=== PATIENT | male | born 1960 | race Caucasian/White ===

== ENCOUNTER → 2022-05-18 | Outpatient (CLI) | payer OTHER ==
[~2022-05-18] MED LIST: AMLO-251 PO; ASPI-808 PO; CANA100T PO; CARV25TA PO; HYDR-34 PO; LEVO750T39 PO; LOSA100T57 PO; METF-397 PO; MULT-1061 PO; ROSU20TA32 PO; SPIR25TA5 PO
--- NOTE | 2022-05-18 11:31 | Diagnostic Imaging Report ---
Exam: MRI right foot without contrast. Date: May 18, 2022. Indication: 61-year-old male, ulcer at the dorsal aspect of the fourth toe. Comparison: None. Technique: Multiple noncontrast MRI sequences of the right foot were obtained. Findings: There is a dorsal skin contour abnormality in the region of the second proximal interphalangeal joint likely relating to provided history of ulcer. There is adjacent abnormal signal in the soft tissues. Sensitivity for detection of abscess is reduced given the lack of postcontrast imaging. There is T1 marrow signal loss involving the fourth proximal phalanx and fourth middle phalanx with associated marrow edema. The marrow edema in the fourth proximal phalanx extends very near its articulating surface and is throughout the fourth middle phalanx. There is no fourth metacarpophalangeal joint effusion. There is abnormal signal within the soft tissues dorsally in the region of the first interphalangeal joint. There is edema-like signal in the first proximal phalanx extending from the proximal metaphysis to its distal margin where there is also edema-like signal in the first distal phalanx. There is no overt T1 marrow signal loss of these bones. The Lisfranc ligament proper is intact. The imaged portions of the peroneal tendons, posterior flexor tendons, and anterior extensor tendons are intact. There is mild generalized fatty muscle atrophy. Impression: 1. Findings consistent with osteomyelitis involving the fourth proximal middle phalanges as discussed above. 2. Dorsal soft tissue ulcer at the level of the fourth proximal interphalangeal joint without identified focal fluid collection or abscess on noncontrast imaging assessment. 3. Abnormal signal in the dorsal soft tissues at the level of the first interphalangeal joint with adjacent marrow signal abnormalities of the first digit proximal and distal phalanges concerning for early osteomyelitis. Correlation for physical exam in this region is recommended. 4. Mild generalized fatty muscle atrophy which may reflect polyneuropathy. Dictated by: Dictated on workstation # [id number]
== END ==
LOC: RAD 09:31
PROVIDERS: ATTEND Family Medicine
DX: E11.621 Type 2 diabetes mellitus with foot ulcer (principal); M62.571 Muscle wasting and atrophy, not elsewhere classified, right ankle and foot

== ENCOUNTER 2022-05-19 11:35 | Inpatient (IN) | payer OTHER ==
[~2022-05-19] VITALS: Ht 188 cm; Wt 102.4 kg
[2022-05-19] MEDS ORDERED: LACTULOSE SYRUP 10GM/15ML (ENULOSE) 30ML UDC PO PRN (12:45)
[2022-05-19] MEDS ORDERED: diphenhydrAMINE 25 MG TAB (BENADRYL) PO PRN (12:45)
[2022-05-19] MEDS ORDERED: diphenhydrAMINE 50 MG/ML INJ (BENADRYL) IVP PRN (12:45)
[2022-05-19] MEDS ORDERED: MELATONIN 3 MG TABLET PO PRN (12:45)
[2022-05-19] MEDS ORDERED: polyethylene glycoL POWDER 17 GM (MIRALAX) PACK PO PRN (12:45)
[2022-05-19] MEDS ORDERED: morphine INJ 4 MG/ML 1 ML (VIAL/SYRINGE) IV PRN (12:45)
[2022-05-19] MEDS ORDERED: ACETAMINOPHEN 325 MG TABLET PO PRN (12:45)
[2022-05-19] MEDS ORDERED: MILK OF MAGNESIA 400 MG/5 ML 30 ML UDC PO PRN (12:45)
[2022-05-19] MEDS ORDERED: ONDANSETRON 4 MG/2 ML (SDV) Z0FRAN IV PRN (12:45)
[2022-05-19] MEDS ORDERED: VANCOMYCIN INJECTION 0.1 MG in NS (IVPB) 250 ML IV SCH (12:45)
[2022-05-19] MEDS ORDERED: ONDANSETRON 4 MG (ZOFRAN) ORAL DISSOLVE TAB PO PRN (12:45)
[2022-05-19] MEDS ORDERED: BISACODYL 10 MG SUPP (DULCOLAX) PR PRN (12:45)
[2022-05-19] MEDS ORDERED: CALCIUM CARBONATE 500 MG (TUMS) TAB.CHEW PO PRN (12:45)
[2022-05-19] MEDS ORDERED: ANTACID SUSP 30 ML UDC (MYLANTA) PO PRN (12:45)
[2022-05-19] MEDS ORDERED: ROSU20TA32 PO (14:30)
[2022-05-19] MEDS ORDERED: CARV25TA PO (14:30)
[2022-05-19] MEDS ORDERED: MULT-1061 PO (14:30)
[2022-05-19] MEDS ORDERED: CANA100T PO (14:30)
[2022-05-19] MEDS ORDERED: SPIR25TA5 PO (14:30)
[2022-05-19] MEDS ORDERED: ASPI-808 PO (14:30)
[2022-05-19] MEDS ORDERED: AMLO-251 PO (14:30)
[2022-05-19] MEDS ORDERED: METF-397 PO (14:30)
[2022-05-19] MEDS ORDERED: LOSA100T57 PO (14:30)
[2022-05-19 14:49] VITALS: BP 130/73
--- NOTE | 2022-05-19 15:16 | Consultation-Cardiology ---
HPI-Cardiology Cardiology Consultation: Date of Consultation 05/19/22 Time Seen by a Provider: 14:45 Date of Admission 05-19-22 Attending Physician Lalit Farr MD Admitting Physician Admitting Physician: Brisa Campo DO Attending Physician: Brisa Campo DO Consulting Physician Arsenio Batres MD Primary City Distribution Clerk: Dr. Almendarez at [facility] HPI: Chief Complaint: Non-healing wound to right great toe Mr. Rodriguez is a 61 yr old male admitted to [facility] from wound care at [place], [place] d/t non-healing wound to right great toe and osteomylitis seen on recent MRI. He states the wound started as a blister several weeks ago and was healing. He reports he wears steel toed boots, which were rubbing on the wound causing to become inflamed. He reports he has been following with wound care at [place], [place] and Dr. Farr (his PCP). He denies any symptoms of claudication. He reports he had an arterial doppler last week in [place] which he reports was normal. He denies any c/o CP, SOB, palpitations. No c/o fever or chills. Review of Systems-Cardiology Review of Systems Constitutional: No chills, No fever, No malaise Eyes: No vision change Ears/Nose/Throat: No epistaxis, No recent hearing loss Respiratory: As described under HPI Cardiovascular: As described under HPI Gastrointestinal: No diarrhea, No nausea, No vomiting Genitourinary: No dysuria, No hematuria Skin: As described under HPI Psychiatric/Neurological: No anxiety, No depression, No focal weakness, No syncope Hematologic: No bleeding abnormalities [id number] Hx Past Medical History PMH As described under Assessment. Family Medical History Family Medical History: He reports his father had a stroke at age 46. Allergies and Home Medications Allergies Coded Allergies: Penicillins (Verified Allergy, Unknown, 05/19/22) Patient Home Medication List Amlodipine Besylate (Amlodipine Besylate) 10 Mg Tablet, 10 MG PO DAILY, (Reported) Entered as Reported by: TORRES GOTTI on 05/19/22 143 Last Action: Continued Aspirin (Aspirin) 325 Mg Tablet, 325 MG PO BID, (Reported) Entered as Reported by: TORRES GOTTI on 05/19/22 143 Last Action: Held Canagliflozin (Invokana) 100 Mg Tablet, 100 MG PO DAILY, (Reported) Entered as Reported by: TORRES GOTTI on 05/19/221429 Last Action: Converted Carvedilol (Carvedilol) 25 Mg Tablet, 25 MG PO BID, (Reported) Entered as Reported by: TORRES GOTTI on 05/19/221429 Last Action: Converted Losartan Potassium (Losartan Potassium) 100 Mg Tablet, 100 MG PO DAILY, (Reported) Entered as Reported by: TORRES GOTTI on 05/19/221429 Last Action: Continued Metformin HCl (Metformin HCl) 500 Mg Tablet, 500 MG PO BID, (Reported) Entered as Reported by: TORRES GOTTI on 05/19/221429 Last Action: Held Multivit-Min/FA/Lycopen/Lutein (Centrum Silver Men Tablet) 300 Mcg-600 Mcg-300 Mcg Tablet, 1 EACH PO DAILY, (Reported) Entered as Reported by: TORRES GOTTI on 05/19/221429 Last Action: Converted Rosuvastatin Calcium (Rosuvastatin Calcium) 20 Mg Tablet, 20 MG PO HS, (Reported) Entered as Reported by: TORRES GOTTI on 05/19/221429 Last Action: Continued Spironolactone (Spironolactone) 25 Mg Tablet, 25 MG PO DAILY, (Reported) Entered as Reported by: TORRES GOTTI on 05/19/221429 Last Action: Continued Physical Exam-Cardiology Physical Exam Vital Signs/I&O 05/19/22 05/20/22 05/20/22 05/20/22 23:51 03:45 07:59 08:21 Temp 36.3 36.4 35.4 Pulse 74 68 73 Resp 17 13 18 B/P (MAP) 120/63 (82) 136/74 (94) 151/80 (103) Pulse Ox 95 95 97 O2 Delivery Room Air Room Air Room Air Room Air 05/20/22 10:59 O2 Delivery Room Air O2 Flow Rate 0.00 05/20/22 00:00 Intake Total 1620 ml Balance 1620 ml Capillary Refill : Constitutional: AAO x 3, well-developed, well-nourished HEENT: PERRL, hearing is well preserved, oral hygience is good Neck: No carotid bruit; carotid pulses are 2 + bilaterally Respiratory: No accessory muscle use, No respiratory distress; chest expansion is symmetric, chest is bilaterally symmetric, lungs clear to auscultation Cardiovascular: regular rate-rhythm; No JVD; S1 and S2 Gastrointestinal: No tender; soft, round, audible bowel sounds Extremities: no lower extremity edema bilateral Neurologic/Psychiatric: grossly intact (moves all extremities) Skin: other (dressing to right great toe which is D&I - not removed) Data Review Labs Laboratory Tests 05/19/22 16:00: Sodium Level 136, Potassium Level 4.6, Chloride Level 104, Carbon Dioxide Level 22, Anion Gap 10, Blood Urea Nitrogen 28H, Creatinine 1.55H, Estimat Glomerular Filtration Rate 50, BUN/Creatinine Ratio 18, Glucose Level 138H, Calcium Level 9.4, Corrected Calcium 9.3, Total Bilirubin 0.5, Aspartate Amino Transf (AST/SGOT) 28, Alanine Aminotransferase (ALT/SGPT) 28, Alkaline Phosphatase 98, Total Protein 7.8, Albumin 4.1 05/19/22 16:06: Glucometer 124H 05/19/22 16:45: White Blood Count 9.7, Red Blood Count 4.43, Hemoglobin 13.9, Hematocrit 42, Mean Corpuscular Volume 95, Mean Corpuscular Hemoglobin 31, Mean Corpuscular Hemoglobin Concent 33, Red Cell Distribution Width 12.7, Platelet Count 244, Mean Platelet Volume 9.6, Immature Granulocyte % (Auto) 0, Neutrophils (%) (Auto) 65, Lymphocytes (%) (Auto) 23, Monocytes (%) (Auto) 6, Eosinophils (%) (Auto) 5, Basophils (%) (Auto) 1, Neutrophils # (Auto) 6.3, Lymphocytes # (Auto) 2.3, Monocytes # (Auto) 0.6, Eosinophils # (Auto) 0.5H, Basophils # (Auto) 0.1, Immature Granulocyte # (Auto) 0.0 05/19/22 20:12: Glucometer 94 05/20/22 05:29: White Blood Count 8.9, Red Blood Count 4.09L, Hemoglobin 13.1L, Hematocrit 39L, Mean Corpuscular Volume 96, Mean Corpuscular Hemoglobin 32, Mean Corpuscular Hemoglobin Concent 34, Red Cell Distribution Width 12.7, Platelet Count 206, Mean Platelet Volume 9.6, Immature Granulocyte % (Auto) 0, Neutrophils (%) (Auto) 71, Lymphocytes (%) (Auto) 16, Monocytes (%) (Auto) 7, Eosinophils (%) (Auto) 5, Basophils (%) (Auto) 1, Neutrophils # (Auto) 6.3, Lymphocytes # (Auto) 1.4, Monocytes # (Auto) 0.6, Eosinophils # (Auto) 0.4H, Basophils # (Auto) 0.1, Immature Granulocyte # (Auto) 0.0, Sodium Level 137, Potassium Level 4.2, Chloride Level 107, Carbon Dioxide Level 22, Anion Gap 8, Blood Urea Nitrogen 21H, Creatinine 1.11, Estimat Glomerular Filtration Rate 75, BUN/Creatinine Ratio 19, Glucose Level 119H, Calcium Level 9.2, Corrected Calcium 9.4, Total Bilirubin 0.6, Aspartate Amino Transf (AST/SGOT) 25, Alanine Aminotransferase (ALT/SGPT) 26, Alkaline Phosphatase 82, Total Protein 6.8, Albumin 3.7 05/20/22 05:43: Glucometer 112H A/P-Cardiology Assessment/Admission Diagnosis Non-healing wound with osteomylitis right great toe - reports arterial u/s last week at wound care in [place], [place] which is reported as normal - management of wound per Dr. Berger and Dr. Campo - MRI 05-18-22: Findings consistent with osteomyelitis involving the fourth proximal middle phalanges as discussed above. Dorsal soft tissue ulcer at the level of the fourth proximal interphalangeal joint without identified focal fluid collection or abscess on noncontrast imaging assessment. Abnormal signal in the dorsal soft tissues at the level of the first interphalangeal joint with adjacent marrow signal abnormalities of the first digit proximal and distal phalanges concerning for early osteomyelitis. Correlation for physical exam in this region is recommended. Mild generalized fatty muscle atrophy which may reflect polyneuropathy. 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 Almendarez of [facility] - maintained on ARB, Coreg, Aldactone DM - diabetic neuropathy of LE HLD HTN Discussion and Recomendations Non-healing wound of right great toe with osteomylitis - management per Dr. Berger/Dr. Campo - peripheral CTA today H/O viral CM per pt report - continue home medications of ARB, BB, diuretic and ASA Monitor lab - replace electrolytes as indicated Further recs will be based on his hospital course We would like to thank Dr. Campo for this consult Clinical Quality Measures DVT/VTE Risk/Contraindication: Contraindications-Mechi: Other *list below* Other: osteomyelitis PAMELA FUNES PRIVATE DUTY AIDE May 19, 2022 15:16
[2022-05-19 15:30] VITALS: BP 130/73
--- NOTE | 2022-05-19 15:32 | Progress Note-Pre Operative ---
Pre-Operative Progress Note H&P Reviewed The H&P was reviewed, patient examined and no changes noted. Date Seen by Provider: May 19, 2022 Time Seen by Provider: 16:00 Date H&P Reviewed: May 19, 2022 Time H&P Reviewed: 16:00 Pre-Operative Diagnosis: left 4th toe osteomyelitis CHICHI KIM MD May 19, 2022 15:32
[2022-05-19] MEDS ORDERED: fentaNYL INJ 100 MCG/2 ML AMP IVP PRN (15:45)
[2022-05-19] MEDS ORDERED: RT-ALBUTEROL SULF 2.5 MG/3 ML PRE-MIX VIAL INH PRN (15:45)
[2022-05-19] MEDS: NS IV 1000 ML 1,000 ML IV SCH ×2 (15:58→20:45)
[2022-05-19] MEDS: ENOXAPARIN 40 MG/0.4 ML (LOVENOX) SYR SC SCH (15:59)
[2022-05-19] MEDS: CEFEPIME INJECTION 1,000 MG in NS (IVPB) 50 ML IV SCH ×2 (15:59→20:32)
[2022-05-19] MEDS ORDERED: VANCOMYCIN 2000 MG/NS 500 ML IVPB IV NR ×2 (16:00)
[2022-05-19 16:10] VITALS: BP 133/74
[2022-05-19] MEDS: inSUlin ASPART (NovoLOG) 1 UNIT/0.01 ML (CHARGE PER UNIT) SC SCH ×2 (16:19→21:00)
[2022-05-19 16:23] LABS: ALBUMIN 4.1 GM/DL (3.2-4.5); POTASSIUM 4.6 MMOL/L (3.6-5.0)
[2022-05-19 16:24] LABS: CALCIUM 9.4 MG/DL (8.5-10.1)
[2022-05-19 16:26] LABS: TOTAL PROTEIN 7.8 GM/DL (6.4-8.2)
[2022-05-19 16:27] LABS: BILIRUBIN,TOTAL 0.5 MG/DL (0.1-1.0)
[2022-05-19 16:29] LABS: CREATININE SERUM 1.55 MG/DL (0.60-1.30)
--- NOTE | 2022-05-19 16:35 | History & Physical-Hospitalist ---
ELEANOR LUNA 05/19/22 1635: History of Present Illness HPI/Chief Complaint Patient presents as a direct admit from wound care in [place], [place] where he was being treated for a right fourth toe lesion. An MRI done 05/18 was consistent with osteomyelitis of the fourth toe. The wound appeared 7 weeks ago as a blister after wearing steel toed boots. Three weeks ago the skin around the wound and up his leg became erythematous, warm, and swollen. At this time he was placed on Cipro 500 BID and Zyvov 600 BID by his PCP. He noticed significant improvement in these symptoms and continued seeing wound care once a week. Currently the wound is visually improved and does not have any surrounding redness or swelling. He denies any signs of systemic infection including fever or chills but reports some photophobia since starting his oral antibiotics. Source: patient, family Exam Limitations: no limitations Date Seen 05/19/22 Time Seen by a Provider: 04:30 Attending Physician Lalit Farr MD PCP Admitting Physician: Brisa Marshall DO Attending Physician: Brisa Marshall DO Referring Physician Date of Admission May 19, 2022 at 14:12 Home Medications & Allergies Home Medications Reviewed patient Home Medication Reconciliation performed by pharmacy medication reconciliations distribution field technician and/or nursing. Patients Allergies have been reviewed. Allergies Allergies Coded Allergies Penicillins (Verified Allergy, Unknown, 05/19/22) Past Tbzpqqb-[id number]-Ceqyxa Hx Patient Social History Tobacco Use?: No Smoking Status: Never a Smoker Smokeless Tobacco Frequency: Never a User Use of E-Cig and/or Vaping dev: No Substance use?: No Alcohol Use?: No Pt feels they are or have been: No Immunizations Up To Date Tetanus Booster (TDap): Less Than 5 Years Hepatitis A: Yes Hepatitis B: Yes Current Status Advance Directives: No Communicates: Verbally Primary Language: Burmese Preferred Spoken Language: Burmese Is interpretation needed?: No Past Medical History Surgeries: Amputation (Right middle finger) High Cholesterol, Hypertension Diabetes, Non-Insulin dep Are Your Blood Sugars Over 250: No Family Medical History CVA (Father at age 46) Review of Systems Constitutional: No chills, No diaphoresis, No fever, No weight gain; weight loss (purposeful) EENTM: eye pain (photophobia since starting oral antibiotics); No throat pain Respiratory: cough (recent cough); No dyspnea on exertion, No short of breath Cardiovascular: No chest pain, No palpitations Gastrointestinal: No abdominal pain, No constipation, No diarrhea Genitourinary: No dysuria, No frequency Musculoskeletal: No joint pain; joint swelling (right ankle (chronically swollen)) Skin: No change in color; lesions (lesion to right 4th toe, dressed. Did not remove dressing.); No rash Psychiatric/Neurological: Denies Headache Physical Exam Physical Exam Vital Signs Vital Signs - First Documented 05/19/22 14:49 Temp 36.2 Pulse 74 Resp 18 B/P (MAP) 130/73 (92) Pulse Ox 96 O2 Delivery Room Air Capillary Refill : Height, Weight, BMI Height: '" Weight: lbs. oz. kg; 28.97 BMI Method: General Appearance: No Apparent Distress Eyes: Bilateral Eye EOMI HEENT: Pharynx Normal, Moist Mucous Membranes Neck: Normal Inspection, Supple Respiratory: Lungs Clear, Normal Breath Sounds, No Accessory Muscle Use Cardiovascular: Regular Rate, Rhythm, No JVD, No Murmur Gastrointestinal: Normal Bowel Sounds, Non Tender Rectal: Deferred Back: Normal Inspection, No CVA Tenderness Extremity: Normal Capillary Refill, No Calf Tenderness, Swelling (right ankle swollen (chronic problem)) Neurologic/Psychiatric: Alert, Oriented x3, Normal Mood/Affect Skin: Normal Color, Warm/Dry, Other (wound to right 4th toe dressed.) Results Results/Procedures Labs Laboratory Tests 05/19/22 16:00 Patient resulted labs reviewed. Assessment/Plan Admission Diagnosis Non-healing wound with osteomylitis right fourth toe Assessment and Plan Non-healing wound with osteomylitis right fourth toe * reports arterial u/s last week at wound care in [place], [place] which is reported as normal * MRI 05-18-22: Findings consistent with osteomyelitis involving the fourth proximal middle phalanges * Started on Vancomycin and Cefepime * Surgery consulted, appreciate recs DM * Hx of diabetic neuropathy of LE * Blood sugars in the 100s * Obtain A1C * Sliding scale insulin while inpatient * Home meds Metformin and Canagliflozin held HLD * Continue home meds HTN * Continue home meds 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 Almendarez of [facility] * Continue SALES PROMOTION COORDINATOR meds ARB, Coreg, Aldactone * Cardiology following, appreciate recs DVT prophylaxis: Lovenox Clinical Quality Measures DVT/VTE Risk/Contraindication: Contraindications-Mechi: Other *list below* Other: osteomyelitis BRISA MARSHALL DO 05/20/22 0608: History of Present Illness HPI/Chief Complaint CC: Right toe osteomyelitis HPI: This is a pt of Dr. Farr in [place]. He presented with amputation of his fourth toe due to MRI confirmed osteomyelitis. Dr. Batres consulted for PVD evaluation. Dr. Berger consulted for amputation. He is diabetic. Source: patient, family Exam Limitations: no limitations Past Zugzsnd-Xyzwdw-Yqynld Hx Patient Social History Marrital Status: Employed/Student: employed Tobacco Use?: No Past Medical History Surgeries: Amputation (Right middle finger) High Cholesterol, Hypertension Diabetes, Non-Insulin dep Review of Systems Constitutional: see HPI Physical Exam Physical Exam General Appearance: No Apparent Distress Eyes: Right Eye Normal Inspection, Right Eye PERRL HEENT: PERRL/EOMI, TMs Normal, Normal ENT Inspection, Pharynx Normal, Moist Mucous Membranes Neck: Full Range of Motion, Normal Inspection, Non Tender Respiratory: Chest Non Tender, Lungs Clear, Normal Breath Sounds, No Accessory Muscle Use, No Respiratory Distress Cardiovascular: Regular Rate, Rhythm, No Edema, No Gallop, No JVD, No Murmur, Normal Peripheral Pulses Gastrointestinal: Normal Bowel Sounds, No Organomegaly, No Pulsatile Mass, Non Tender, Soft Back: Normal Inspection, No CVA Tenderness, No Vertebral Tenderness Extremity: Normal Capillary Refill, Normal Inspection, Normal Range of Motion, Non Tender, No Calf Tenderness, No Pedal Edema Neurologic/Psychiatric: Alert, Oriented x3, No Motor/Sensory Deficits, Normal Mood/Affect Skin: Normal Color, Warm/Dry Lymphatic: No Adenopathy Assessment/Plan Admission Diagnosis Assessment: Osteomyelitis in right 4th toe DM HTN HLP Plan: Amputation IV abx Admission Status: Inpatient Order (span 2 midnights) Reason for Inpatient Admission: amputation for osteo Diagnosis/Problems Diagnosis/Problems (1) Osteomyelitis of toe of right foot Supervisory-Addendum Brief Verification & Attestation Participated in pt care: history, MDM, physical Personally performed: exam, history, MDM, supervision of care Care discussed with: Medical Student Procedures: n/a Results interpretation: Verified all documentation Verification and Attestation of Medical Student E/M Service A medical student performed and documented this service in my presence. I reviewed and verified all information documented by the medical student and made modifications to such information, when appropriate. I personally performed the physical exam and medical decision making. Brisa Marshall, May 21, 2022,05:25 ELEANOR LUNA May 19, 2022 16:35 BRISA MARSHALL DO May 20, 2022 06:08
[2022-05-19 16:53] LABS: BASOPHILS # (AUTO) 0.1 10^3/uL (0.0-0.1); BASOPHILS % (AUTO) 1 % (0-10); EOSINOPHILS # (AUTO) 0.5 10^3/uL (0.0-0.3); EOSINOPHILS % (AUTO) 5 % (0-10); HEMATOCRIT 42 % (40-54); HEMOGLOBIN 13.9 g/dL (13.3-17.7); LYMPHOCYTES # (AUTO) 2.3 10^3/uL (1.0-4.0); LYMPHOCYTES % (AUTO) 23 % (12-44); MEAN CORPUSCULAR HEMOGLOBIN 31 pg (25-34); MEAN CORPUSCULAR HGB CONC 33 g/dL (32-36); MEAN CORPUSCULAR VOLUME 95 fL (80-99); MEAN PLATELET VOLUME 9.6 fL (9.0-12.2); MONOCYTES # (AUTO) 0.6 10^3/uL (0.0-1.0); MONOCYTES % (AUTO) 6 % (0-12); NEUTROPHILS # (AUTO) 6.3 10^3/uL (1.8-7.8); NEUTROPHILS % (AUTO) 65 % (42-75); PLATELET COUNT 244 10^3/uL (130-400); WHITE BLOOD COUNT 9.7 10^3/uL (4.3-11.0)
[2022-05-19] MEDS ORDERED: NS 100 ML (IVPB) BAG IV ONE (17:15)
[2022-05-19] MEDS ORDERED: HOLD METFORMIN - RECEIVED CONTRAST 20 ML VIAL IV SCH (17:15)
[2022-05-19] MEDS ORDERED: IOHEXOL 350 MG/ML 100 ML (OMNIPAQUE 350) VIAL IV ONE (17:15)
--- NOTE | 2022-05-19 17:55 | Diagnostic Imaging Report ---
TECHNIQUE: CTA of the right lower extremity was performed. 3D reformats were obtained and reviewed. Dose-reduction techniques were utilized. COMPARISON: 05/18/2022. REASON FOR EXAM: Osteomyelitis. Nonhealing wound. FINDINGS: Scattered atherosclerotic plaque is seen in the right lower extremity arterial system. The right common femoral, profunda femoris, superficial femoral, and popliteal arteries are widely patent without stenosis or aneurysm. No evidence of dissection in these arteries. The anterior tibial and peroneal arteries are widely patent to the ankle. The dorsalis pedis is widely patent and visualized. There is occlusion of the posterior tibial artery proximally secondary to atherosclerotic plaque. No acute fracture is seen in the right lower extremity. There is generalized soft tissue edema in the right foot. No loculated collection to suggest abscess. The abdominal aorta is patent without aneurysm or dissection. The major branch vessels are widely patent. No acute abnormalities are seen in the visualized abdomen. IMPRESSION: 1. Two-vessel runoff to the right lower extremity with occlusion of the proximal right posterior tibial artery. The dorsalis pedis is widely patent. 2. Scattered atherosclerotic plaque in the right lower extremity arterial system. 3. Inflammation and cellulitis in the right foot. No loculated collection to suggest abscess. Dictated by: Dictated on workstation # [id number]
--- NOTE | 2022-05-19 19:21 | Consultation-Cardiology ---
HPI-Cardiology Cardiology Consultation: Date of Consultation 05/19/22 Time Seen by a Provider: 18:40 Date of Admission Attending Physician Lalit Farr MD Admitting Physician Admitting Physician: Brisa Campo DO Attending Physician: Brisa Campo DO Consulting Physician REMI KEMP MD, MA, FACP, FACC, [facility], CCDS HPI: Chief Complaint: Non-healing wound to right great toe Mr. Rodriguez is a 61 yr old male admitted to [facility] from wound care at [place], [place] d/t non-healing wound to right great toe and osteomylitis seen on recent MRI. He states the wound started as a blister several weeks ago and was healing. He reports he wears steel toed boots, which were rubbing on the wound causing to become inflamed. He reports he has been following with wound care at [place], [place] and Dr. Farr (his PCP). He denies any symptoms of claudication. He reports he had an arterial doppler last week in [place] which he reports was normal. He denies any c/o CP, SOB, palpitations. No c/o fever or chills. Review of Systems-Cardiology Review of Systems Constitutional: No chills, No fever, No malaise Eyes: No vision change Ears/Nose/Throat: No epistaxis, No recent hearing loss Respiratory: As described under HPI Cardiovascular: As described under HPI Gastrointestinal: No diarrhea, No nausea, No vomiting Genitourinary: No dysuria, No hematuria Skin: As described under HPI Psychiatric/Neurological: No anxiety, No depression, No focal weakness, No syncope Hematologic: No bleeding abnormalities [id number] Hx Patient Social History Smoking Status: Never a Smoker Have you traveled recently?: No Alcohol Use?: No Pt feels they are or have been: No Past Medical History PMH As described under Assessment. Family Medical History Family Medical History: He reports his father had a stroke at age 46. Allergies and Home Medications Allergies Coded Allergies: Penicillins (Verified Allergy, Unknown, 05/19/22) Patient Home Medication List Home Medication List Reviewed: Yes Amlodipine Besylate (Amlodipine Besylate) 10 Mg Tablet, 10 MG PO DAILY, (Reported) Entered as Reported by: TORRES GOTTI on 05/19/22 1430 Last Action: Reviewed Aspirin (Aspirin) 325 Mg Tablet, 325 MG PO BID, (Reported) Entered as Reported by: TORRES GOTTI on 05/19/221429 Last Action: Reviewed Canagliflozin (Invokana) 100 Mg Tablet, 100 MG PO DAILY, (Reported) Entered as Reported by: TORRES GOTTI on 05/19/221429 Last Action: Reviewed Carvedilol (Carvedilol) 25 Mg Tablet, 25 MG PO BID, (Reported) Entered as Reported by: TORRES GOTTI on 05/19/221429 Last Action: Reviewed Losartan Potassium (Losartan Potassium) 100 Mg Tablet, 100 MG PO DAILY, (Reported) Entered as Reported by: TORRES GOTTI on 05/19/221429 Last Action: Reviewed Metformin HCl (Metformin HCl) 500 Mg Tablet, 500 MG PO BID, (Reported) Entered as Reported by: TORRES GOTTI on 05/19/221429 Last Action: Reviewed Multivit-Min/FA/Lycopen/Lutein (Centrum Silver Men Tablet) 300 Mcg-600 Mcg-300 Mcg Tablet, 1 EACH PO DAILY, (Reported) Entered as Reported by: TORRES GOTTI on 05/19/221429 Last Action: Reviewed Rosuvastatin Calcium (Rosuvastatin Calcium) 20 Mg Tablet, 20 MG PO HS, (Reported) Entered as Reported by: TORRES GOTTI on 05/19/221429 Last Action: Reviewed Spironolactone (Spironolactone) 25 Mg Tablet, 25 MG PO DAILY, (Reported) Entered as Reported by: TORRES GOTTI on 05/19/221429 Last Action: Reviewed Physical Exam-Cardiology Physical Exam Vital Signs/I&O 05/19/22 05/19/22 05/19/22 05/19/22 14:49 15:30 16:09 16:10 Temp 36.2 36.2 36.2 Pulse 74 74 71 Resp 18 18 B/P (MAP) 130/73 (92) 133/74 (93) Pulse Ox 96 96 96 99 O2 Delivery Room Air Room Air Room Air Capillary Refill : Constitutional: AAO x 3, well-developed, well-nourished HEENT: PERRL, hearing is well preserved, oral hygience is good Neck: No carotid bruit; carotid pulses are 2 + bilaterally Respiratory: No accessory muscle use, No respiratory distress; chest expansion is symmetric, chest is bilaterally symmetric, lungs clear to auscultation Cardiovascular: regular rate-rhythm; No JVD; S1 and S2 Gastrointestinal: No tender; soft, round, audible bowel sounds Extremities: no lower extremity edema bilateral Neurologic/Psychiatric: grossly intact (moves all extremities) Skin: other (dressing to right great toe which is D&I - not removed) Data Review Labs Laboratory Tests 05/19/22 16:00: Sodium Level 136, Potassium Level 4.6, Chloride Level 104, Carbon Dioxide Level 22, Anion Gap 10, Blood Urea Nitrogen 28H, Creatinine 1.55H, Estimat Glomerular Filtration Rate 50, BUN/Creatinine Ratio 18, Glucose Level 138H, Calcium Level 9.4, Corrected Calcium 9.3, Total Bilirubin 0.5, Aspartate Amino Transf (AST/SGOT) 28, Alanine Aminotransferase (ALT/SGPT) 28, Alkaline Phosphatase 98, Total Protein 7.8, Albumin 4.1 05/19/22 16:06: Glucometer 124H 05/19/22 16:45: White Blood Count 9.7, Red Blood Count 4.43, Hemoglobin 13.9, Hematocrit 42, Mean Corpuscular Volume 95, Mean Corpuscular Hemoglobin 31, Mean Corpuscular Hemoglobin Concent 33, Red Cell Distribution Width 12.7, Platelet Count 244, Mean Platelet Volume 9.6, Immature Granulocyte % (Auto) 0, Neutrophils (%) (Auto) 65, Lymphocytes (%) (Auto) 23, Monocytes (%) (Auto) 6, Eosinophils (%) (Auto) 5, Basophils (%) (Auto) 1, Neutrophils # (Auto) 6.3, Lymphocytes # (Auto) 2.3, Monocytes # (Auto) 0.6, Eosinophils # (Auto) 0.5H, Basophils # (Auto) 0.1, Immature Granulocyte # (Auto) 0.0 A/P-Cardiology Assessment/Admission Diagnosis Non-healing wound with osteomylitis right great toe - reports arterial u/s last week at wound care in [place], [place] which is reported as normal - management of wound per Dr. Berger and Dr. Campo - MRI 05-18-22: Findings consistent with osteomyelitis involving the fourth proximal middle phalanges as discussed above. Dorsal soft tissue ulcer at the level of the fourth proximal interphalangeal joint without identified focal fluid collection or abscess on noncontrast imaging assessment. Abnormal signal in the dorsal soft tissues at the level of the first interphalangeal joint with adjacent marrow signal abnormalities of the first digit proximal and distal phalanges concerning for early osteomyelitis. Correlation for physical exam in this region is recommended. Mild generalized fatty muscle atrophy which may reflect polyneuropathy. 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 Almendarez of [facility] - maintained on ARB, Coreg, Aldactone DM - diabetic neuropathy of LE HLD HTN Discussion and Recomendations Non-healing wound of right great toe with osteomylitis - management per Dr. Berger/Dr. Campo - peripheral CTA today H/O viral CM per pt report - continue home medications of ARB, BB, diuretic and ASA Monitor lab - replace electrolytes as indicated Echo to eval for cardiomyopathy Further recs will be based on his hospital course We would like to thank Dr. Campo for this consult Clinical Quality Measures DVT/VTE Risk/Contraindication: Contraindications-Mechi: Other *list below* Other: osteomyelitis REMI KEMP MD FACP [facility] CCDS May 19, 2022 19:21
[2022-05-19 20:06] VITALS: BP 146/76
[2022-05-19] MEDS: DOCUSATE SODIUM 100 MG (COLACE) CAP PO SCH (20:29)
[2022-05-19] MEDS: SENNOSIDES 8.6 MG (SENOKOT) TAB PO SCH (20:30)
--- NOTE | 2022-05-19 22:12 | CONSULTATION REPORT ---
DATE OF SERVICE: 05/19/2022 ADMITTING PRIMARY CARE PHYSICIAN: Dr. Lalit Farr in [facility]. ADMITTING PHYSICIAN: Dr. Campo. HISTORY OF PRESENT ILLNESS: The patient is a 61-year-old male who was evaluated for nonhealing wound along the dorsal aspect of the right fourth toe. He states that a blister began approximately seven weeks ago and this then became larger in size, opened up and there was surrounding redness and erythema. 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 He does not report any claudication upon ambulation. He also reports having pulse volume recordings which were found to be normal. Also, on physical examination, he has palpable posterior tibial and dorsalis pedis large arteries. 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 An MRI was performed yesterday, which did show osteomyelitis of the right fourth and first toe. PAST MEDICAL HISTORY: Hypertension, diabetes, hypercholesterolemia, gastroesophageal reflux disease. PAST SURGICAL HISTORY: None. ALLERGIES: PENICILLIN. MEDICATIONS: Amlodipine 10 mg daily, aspirin 325 mg b.i.d., canagliflozin 100 mg daily, carvedilol 25 mg b.i.d., losartan 100 mg daily, metformin 500 mg b.i.d., rosuvastatin 20 mg daily, spironolactone 25 mg daily. SOCIAL HISTORY: Negative smoke, negative alcohol. FAMILY HISTORY: Father, stroke in his 40s, colon cancer. VITAL SIGNS: Temperature 36.2, blood pressure 130/73, pulse 74, respirations 18, pulse ox 96% on room air. REVIEW OF SYSTEMS: Well-nourished male currently in no acute distress. He is not experiencing any shortness of breath or difficulty breathing. No chest pain, palpitations, diaphoresis. No nausea or vomiting, no diarrhea or constipation. No fever or chills, no recent inadvertent weight loss. All other review of systems negative. There also was abnormal MRI uptake at the right first interphalangeal joint concerning for early osteomyelitis. The natural history of small vessel arteriosclerosis due to diabetes was explained to the patient as well as with osteomyelitis and he is in full understanding and would like to proceed with amputation of the right first and fourth digit. PHYSICAL EXAMINATION: CHEST: Good breath sounds bilaterally. CARDIOVASCULAR: Regular, no murmurs. EXTREMITIES: No lower extremity edema, negative Homans sign. HEENT: No scleral icterus. NECK: No cervical lymphadenopathy. ABDOMEN: Soft, nontender, nondistended. SKIN: There are open wounds along the dorsal aspect of the first and fourth right toes. ASSESSMENT AND PLAN: A 61-year-old male with diabetes and small vessel arteriosclerosis or Monckeberg syndrome with osteomyelitis involving the first and fourth right toes. The natural history of this phenomenon as well as the osteomyelitis and the difficulty treating it and risk of recurrent infections is high. He is in full understanding of this and would like to proceed with amputation of the right first and fourth digits, which we will schedule. Job ID: [id number] DocumentID: [id number] Dictated Date: 05/19/2022 15:44:11 Corporate Strategy Intern Date: 05/19/2022 22:11:25 Dictated By: CHICHI KIM MD MTDD
[2022-05-19 23:51] VITALS: BP 120/63
[2022-05-20] VITALS (10 sets, daily range): BP systolic 87–151; BP diastolic 56–80
[2022-05-20] MEDS: CEFEPIME INJECTION 1,000 MG in NS (IVPB) 50 ML IV SCH ×4 (03:34→20:48)
[2022-05-20 05:50] LABS: BASOPHILS # (AUTO) 0.1 10^3/uL (0.0-0.1); BASOPHILS % (AUTO) 1 % (0-10); EOSINOPHILS # (AUTO) 0.4 10^3/uL (0.0-0.3); EOSINOPHILS % (AUTO) 5 % (0-10); HEMATOCRIT 39 % (40-54); HEMOGLOBIN 13.1 g/dL (13.3-17.7); LYMPHOCYTES # (AUTO) 1.4 10^3/uL (1.0-4.0); LYMPHOCYTES % (AUTO) 16 % (12-44); MEAN CORPUSCULAR HEMOGLOBIN 32 pg (25-34); MEAN CORPUSCULAR HGB CONC 34 g/dL (32-36); MEAN CORPUSCULAR VOLUME 96 fL (80-99); MEAN PLATELET VOLUME 9.6 fL (9.0-12.2); MONOCYTES # (AUTO) 0.6 10^3/uL (0.0-1.0); MONOCYTES % (AUTO) 7 % (0-12); NEUTROPHILS # (AUTO) 6.3 10^3/uL (1.8-7.8); NEUTROPHILS % (AUTO) 71 % (42-75); PLATELET COUNT 206 10^3/uL (130-400); WHITE BLOOD COUNT 8.9 10^3/uL (4.3-11.0)
[2022-05-20] MEDS: NS IV 1000 ML 1,000 ML IV SCH ×3 (05:53→15:38)
[2022-05-20] MEDS: inSUlin ASPART (NovoLOG) 1 UNIT/0.01 ML (CHARGE PER UNIT) SC SCH ×4 (05:55→23:26)
[2022-05-20 06:00] LABS: ALBUMIN 3.7 GM/DL (3.2-4.5); POTASSIUM 4.2 MMOL/L (3.6-5.0)
[2022-05-20 06:02] LABS: CALCIUM 9.2 MG/DL (8.5-10.1)
[2022-05-20 06:03] LABS: TOTAL PROTEIN 6.8 GM/DL (6.4-8.2)
[2022-05-20 06:05] LABS: BILIRUBIN,TOTAL 0.6 MG/DL (0.1-1.0)
[2022-05-20 06:06] LABS: CREATININE SERUM 1.11 MG/DL (0.60-1.30)
[2022-05-20] MEDS: MULTIVIT W/MINERALS TAB (THERAGRAN M) PO SCH (07:00)
[2022-05-20] MEDS: EMPAGLIFLOZIN 10 MG TABLET (JARDIANCE) PO SCH (07:43)
[2022-05-20] MEDS: SENNOSIDES 8.6 MG (SENOKOT) TAB PO SCH ×2 (07:43→20:55)
[2022-05-20] MEDS: DOCUSATE SODIUM 100 MG (COLACE) CAP PO SCH ×2 (07:43→20:55)
[2022-05-20] MEDS: SPIRONOLACTONE 25 MG (ALDACTONE) TAB PO SCH (07:44)
[2022-05-20] MEDS: LOSARTAN 100 MG (COZAAR) TABLET PO SCH (09:20)
[2022-05-20] MEDS: amLODIPine 10 MG (NORVASC) TAB PO SCH (09:20)
[2022-05-20] MEDS ORDERED: VANCOMYCIN 2000 MG/NS 500 ML IVPB IV SCH ×2 (12:00)
--- NOTE | 2022-05-20 12:37 | Progress Note - Cardiology ---
Cardiology SOAP Progress Note Subjective: States he is having surgery today No c/o CP, SOB or palpitations Objective: I&O/Vital Signs 05/20/22 05/20/22 05/20/22 05/20/22 03:45 07:59 08:21 10:59 Temp 36.4 35.4 Pulse 68 73 Resp 13 18 B/P (MAP) 136/74 (94) 151/80 (103) Pulse Ox 95 97 O2 Delivery Room Air Room Air Room Air Room Air O2 Flow Rate 0.00 05/20/22 00:00 Intake Total 1620 ml Balance 1620 ml Constitutional: AAO x 3, well-developed, well-nourished Respiratory: No accessory muscle use, No respiratory distress; chest expansion is symmetric, chest is bilaterally symmetric, lungs clear to auscultation Cardiovascular: regular rate-rhythm; No JVD; S1 and S2 Gastrointestional: No tender; soft, round, audible bowel sounds Extremities: no lower extremity edema bilateral Neurologic/Psychiatric: grossly intact (moves all extremities) Skin: other (dressing to right great toe which is D&I - not removed) Results/Procedures: Labs Laboratory Tests 05/19/22 16:00: Sodium Level 136, Potassium Level 4.6, Chloride Level 104, Carbon Dioxide Level 22, Anion Gap 10, Blood Urea Nitrogen 28H, Creatinine 1.55H, Estimat Glomerular Filtration Rate 50, BUN/Creatinine Ratio 18, Glucose Level 138H, Calcium Level 9.4, Corrected Calcium 9.3, Total Bilirubin 0.5, Aspartate Amino Transf (AST/SGOT) 28, Alanine Aminotransferase (ALT/SGPT) 28, Alkaline Phosphatase 98, Total Protein 7.8, Albumin 4.1 05/19/22 16:06: Glucometer 124H 05/19/22 16:45: White Blood Count 9.7, Red Blood Count 4.43, Hemoglobin 13.9, Hematocrit 42, Mean Corpuscular Volume 95, Mean Corpuscular Hemoglobin 31, Mean Corpuscular Hemoglobin Concent 33, Red Cell Distribution Width 12.7, Platelet Count 244, Mean Platelet Volume 9.6, Immature Granulocyte % (Auto) 0, Neutrophils (%) (Auto) 65, Lymphocytes (%) (Auto) 23, Monocytes (%) (Auto) 6, Eosinophils (%) (Auto) 5, Basophils (%) (Auto) 1, Neutrophils # (Auto) 6.3, Lymphocytes # (Auto) 2.3, Monocytes # (Auto) 0.6, Eosinophils # (Auto) 0.5H, Basophils # (Auto) 0.1, Immature Granulocyte # (Auto) 0.0 05/19/22 20:12: Glucometer 94 05/20/22 05:29: White Blood Count 8.9, Red Blood Count 4.09L, Hemoglobin 13.1L, Hematocrit 39L, Mean Corpuscular Volume 96, Mean Corpuscular Hemoglobin 32, Mean Corpuscular Hemoglobin Concent 34, Red Cell Distribution Width 12.7, Platelet Count 206, Valeria n Platelet Volume 9.6, Immature Granulocyte % (Auto) 0, Neutrophils (%) (Auto) 71, Lymphocytes (%) (Auto) 16, Monocytes (%) (Auto) 7, Eosinophils (%) (Auto) 5, Basophils (%) (Auto) 1, Neutrophils # (Auto) 6.3, Lymphocytes # (Auto) 1.4, Monocytes # (Auto) 0.6, Eosinophils # (Auto) 0.4H, Basophils # (Auto) 0.1, Immature Granulocyte # (Auto) 0.0, Sodium Level 137, Potassium Level 4.2, Chloride Level 107, Carbon Dioxide Level 22, Anion Gap 8, Blood Urea Nitrogen 21H, Creatinine 1.11, Estimat Glomerular Filtration Rate 75, BUN/Creatinine Ratio 19, Glucose Level 119H, Calcium Level 9.2, Corrected Calcium 9.4, Total Bilirubin 0.6, Aspartate Amino Transf (AST/SGOT) 25, Alanine Aminotransferase (ALT/SGPT) 26, Alkaline Phosphatase 82, Total Protein 6.8, Albumin 3.7 05/20/22 05:43: Glucometer 112H 05/20/22 11:38: Glucometer 107 Laboratory Tests 05/19/22 16:00 05/19/22 16:45 05/20/22 05:29 A/P: Assessment: Non-healing wound with osteomylitis right great toe - reports arterial u/s last week at wound care in [place], [place] which is reported as normal - management of wound per Dr. Berger and Dr. Campo - MRI 05-18-22: Findings consistent with osteomyelitis involving the fourth proximal middle phalanges as discussed above. Dorsal soft tissue ulcer at the level of the fourth proximal interphalangeal joint without identified focal fluid collection or abscess on noncontrast imaging assessment. Abnormal signal in the dorsal soft tissues at the level of the first interphalangeal joint with adjacent marrow signal abnormalities of the first digit proximal and distal phalanges concerning for early osteomyelitis. Correlation for physical exam in this region is recommended. Mild generalized fatty muscle atrophy which may reflect polyneuropathy. 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 Almendarez of [facility] - maintained on ARB, Coreg, Aldactone DM - diabetic neuropathy of LE HLD HTN Plan: Non-healing wound of right great toe with osteomylitis - management per Dr. Berger/Dr. Campo H/O viral CM per pt report - continue home medications of ARB, BB, diuretic and ASA Monitor lab - replace electrolytes as indicated Echo to eval for cardiomyopathy - pending PAMELA FUNES May 20, 2022 12:37
--- NOTE | 2022-05-20 13:10 | Progress Note-Pre Operative ---
Pre-Operative Progress Note H&P Reviewed The H&P was reviewed, patient examined and no changes noted. Date Seen by Provider: May 20, 2022 Time Seen by Provider: 13:00 Date H&P Reviewed: May 19, 2022 Time H&P Reviewed: 13:00 Pre-Operative Diagnosis: osteomyelitis right 4th toe CHICHI KIM MD May 20, 2022 13:10
[2022-05-20] MEDS ORDERED: proPOfol 200 MG/20 ML (DIPRIVAN) VIAL IV ONE (13:23)
[2022-05-20] MEDS ORDERED: MIDAZOLAM 2 MG/2 ML (VERSED) VIAL ONE (13:23)
[2022-05-20] MEDS ORDERED: fentaNYL INJ 100 MCG/2 ML AMP ONE (13:23)
[2022-05-20] MEDS ORDERED: ONDANSETRON 4 MG/2 ML (SDV) Z0FRAN ONE (13:23)
[2022-05-20] MEDS ORDERED: LIDOCAINE PF 2% 5 ML (XYLOCAINE) VIAL ONE (13:23)
--- NOTE | 2022-05-20 13:24 | Progress Note - Hospitalist ---
ELEANOR LUNA 05/20/22 1324: Subjective HPI/CC On Admission Date Seen by Provider: May 20, 2022 Time Seen by Provider: 10:50 Patient presents as a direct admit from wound care in [place], [place] where he was being treated for a right fourth toe lesion. An MRI done 05/18 was consistent with osteomyelitis of the fourth toe. The wound appeared 7 weeks ago as a blister after wearing steel toed boots. Three weeks ago the skin around the wound and up his leg became erythematous, warm, and swollen. At this time he was placed on Cipro 500 BID and Zyvov 600 BID by his PCP. He noticed significant improvement in these symptoms and continued seeing wound care once a week. Currently the wound is visually improved and does not have any surrounding redness or swelling. He denies any signs of systemic infection including fever or chills but reports some photophobia since starting his oral antibiotics. Subjective/Events-last exam Patient reports no acute events overnight. He denies any fever/chills or pain. He would like clarification on which toe/toes will be amputated in today's surgery. Review of Systems General: No Chills, No Night Sweats, No Fatigue HEENT: No Head Aches, No Visual Changes Pulmonary: No Dyspnea, No Cough Cardiovascular: No: Chest Pain, Palpitations Gastrointestinal: No: Nausea, Vomiting Genitourinary: No Dysuria, No Frequency Musculoskeletal: No: neck pain, shoulder pain Neurological: No: Weakness, Confusion Objective Exam Vital Signs Vital Signs Date Time Temp Pulse Resp B/P (MAP) Pulse Ox O2 Delivery O2 Flow Rate FiO2 05/20/22 12:43 35.8 68 18 127/68 (87) 98 Room Air 05/20/22 10:59 0.00 Capillary Refill : General Appearance: No Apparent Distress HEENT: Moist Mucous Membranes Neck: Full Range of Motion, Non Tender, Supple Respiratory: Chest Non Tender, Lungs Clear, Normal Breath Sounds Cardiovascular: Regular Rate, Rhythm, No Edema, No JVD Gastrointestinal: Normal Bowel Sounds, Non Tender Rectal: Deferred Back: Normal Inspection Extremity: Normal Capillary Refill Neurologic/Psychiatric: Alert, Oriented x3 Skin: Normal Color, Warm/Dry, Other (right toes bandaged. No errythema to surrounding area) Lymphatic: No Adenopathy Results/Procedures Lab Laboratory Tests 05/19/22 16:00 05/19/22 16:45 05/20/22 05:29 Patient resulted labs reviewed. Assessment/Plan Assessment and Plan Assess & Plan/Chief Complaint Non-healing wound with osteomylitis right fourth toe * reports arterial u/s last week at wound care in [place], [place] which is reported as normal * MRI 05-18-22: Findings consistent with osteomyelitis involving the fourth proximal middle phalanges * Started on Vancomycin and Cefepime * NPO * Surgery consulted, will have 4th toe amputated today DM * Hx of diabetic neuropathy of LE * Blood sugars in the 100s * Obtain A1C * Sliding scale insulin while inpatient * Home meds Metformin and Canagliflozin held HLD * Continue home meds HTN * Continue home meds 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 Almendarez of [facility] * Continue BAKER PASTRY meds ARB, Coreg, Aldactone * Cardiology following, appreciate recs DVT prophylaxis: Lovenox Clinical Quality Measures DVT/VTE Risk/Contraindication: Contraindications-Mechi: Other *list below* Other: osteomyelitis BRISA MARSHALL DO 05/21/22 0603: Subjective Subjective/Events-last exam Pt is doing well Amputation of the 4th toe will be initiated today by Dr. Berger, although his great toe is involved pt doesn't wish to have an amputation there IV antibiotics maintained is at the bedside Review of Systems Musculoskeletal: foot pain Objective Exam General Appearance: No Apparent Distress, WD/WN, Chronically ill Respiratory: Lungs Clear, Normal Breath Sounds Cardiovascular: Regular Rate, Rhythm Assessment/Plan Assessment and Plan Assess & Plan/Chief Complaint amputation Supervisory-Addendum Brief Verification & Attestation Participated in pt care: history, MDM, physical Personally performed: exam, history, MDM, supervision of care Care discussed with: Medical Student Procedures: n/a Results interpretation: Verified all documentation Verification and Attestation of Medical Student E/M Service A medical student performed and documented this service in my presence. I reviewed and verified all information documented by the medical student and made modifications to such information, when appropriate. I personally performed the physical exam and medical decision making. Brisa Marshall, May 21, 2022,06:03 ELEANOR LUNA May 20, 2022 13:24 BRISA MARSHALL DO May 21, 2022 06:03
[2022-05-20] MEDS ORDERED: PROPOFOL INJECTION 50 ML IV ONE (14:07)
[2022-05-20] MEDS: LIDOCAINE/EPI 2% 1:100,00 (XYLOCAINE) 20 ML VIAL ONE ×2 (14:14→15:23)
[2022-05-20] MEDS ORDERED: ONDANSETRON 4 MG/2 ML (SDV) Z0FRAN IVP PRN (15:00)
[2022-05-20] MEDS: morphine INJ 10 MG/ML 1ML (SYR OR VIAL) IVP ONE ×2 (15:23→17:03)
[2022-05-20] MEDS: ENOXAPARIN 40 MG/0.4 ML (LOVENOX) SYR SC SCH (15:38)
--- NOTE | 2022-05-20 15:42 | Progress Note-Post Operative ---
Post-Operative Progess Note Surgeon (s)/Domestic Helper (s) Surgeon CHICHI KIM MD Domestic Helper: jessenia galvan [employer] Pre-Operative Diagnosis osteomyelitis right 4th toe Post-Operative Diagnosis same Procedure & Operative Findings Date of Procedure 05/20/22 Procedure Performed/Findings right 4th toe amputation with intermediate flap closure 2cm, ankle nerve block Anesthesia Type mac with nerve block and local Estimated Blood Loss Estimated blood loss (mL): minimal Specimens/Packing Specimens Removed rt 4th toe CHICHI KIM MD May 20, 2022 15:42
--- NOTE | 2022-05-20 16:02 | Anesthesia-General Post-Op ---
MAC Patient Condition Mental Status/LOC: Same as Preop Cardiovascular: Satisfactory Nausea/Vomiting: Absent Respiratory: Satisfactory Pain: Controlled Complications: Absent Post Op Complications Complications None Follow Up Care/Instructions Patient Instructions None needed. Anesthesiology Discharge Order Discharge Order Patient was doing well in PACU with no complaints, stable vital signs, no apparent adverse anesthesia problems. No complications reported per nursing. EVAN ROBERT DO May 20, 2022 16:02
--- NOTE | 2022-05-20 18:08 | Progress Note - Cardiology ---
Cardiology SOAP Progress Note Subjective: No cp or palp or syncope or shortness of breath No n/v/d Objective: I&O/Vital Signs 05/20/22 05/20/22 05/20/22 05/20/22 07:59 08:21 10:59 12:43 Temp 35.4 35.8 Pulse 73 68 Resp 18 18 B/P (MAP) 151/80 (103) 127/68 (87) Pulse Ox 97 98 O2 Delivery Room Air Room Air Room Air Room Air O2 Flow Rate 0.00 05/20/22 05/20/22 05/20/22 05/20/22 14:43 14:43 14:50 15:00 Temp 36.6 Resp 20 16 14 B/P (MAP) 87/56 (66) 110/64 (79) 121/72 (88) Pulse Ox 95 98 98 O2 Delivery OxyMask OxyMask OxyMask Room Air O2 Flow Rate 4.00 4.00 2.00 05/20/22 05/20/22 05/20/22 15:10 15:15 15:48 Temp 36.1 36.0 Pulse 61 Resp 16 18 B/P (MAP) 124/73 (90) 141/67 (91) Pulse Ox 96 93 O2 Delivery Room Air Room Air Room Air 05/20/22 00:00 Intake Total 1620 ml Balance 1620 ml Constitutional: AAO x 3, well-developed, well-nourished Respiratory: No accessory muscle use, No respiratory distress; chest expansion is symmetric, chest is bilaterally symmetric, lungs clear to auscultation Cardiovascular: regular rate-rhythm; No JVD; S1 and S2 Gastrointestional: No tender; soft, round, audible bowel sounds Extremities: no lower extremity edema bilateral Neurologic/Psychiatric: grossly intact (moves all extremities) Skin: other (dressing to right great toe which is D&I - not removed) Results/Procedures: Labs Laboratory Tests 05/19/22 20:12: Glucometer 94 05/20/22 05:29: White Blood Count 8.9, Red Blood Count 4.09L, Hemoglobin 13.1L, Hematocrit 39L, Mean Corpuscular Volume 96, Mean Corpuscular Hemoglobin 32, Mean Corpuscular Hemoglobin Concent 34, Red Cell Distribution Width 12.7, Platelet Count 206, Mean Platelet Volume 9.6, Immature Granulocyte % (Auto) 0, Neutrophils (%) (Auto) 71, Lymphocytes (%) (Auto) 16, Monocytes (%) (Auto) 7, Eosinophils (%) (Auto) 5, Basophils (%) (Auto) 1, Neutrophils # (Auto) 6.3, Lymphocytes # (Auto) 1.4, Monocytes # (Auto) 0.6, Eosinophils # (Auto) 0.4H, Basophils # (Auto) 0.1, Immature Granulocyte # (Auto) 0.0, Sodium Level 137, Potassium Level 4.2, Chloride Level 107, Carbon Dioxide Level 22, Anion Gap 8, Blood Urea Nitrogen 21H, Creatinine 1.11, Estimat Glomerular Filtration Rate 75, BUN/Creatinine Ratio 19, Glucose Level 119H, Calcium Level 9.2, Corrected Calcium 9.4, Total Bilirubin 0.6, Aspartate Amino Transf (AST/SGOT) 25, Alanine Aminotransferase (ALT/SGPT) 26, Alkaline Phosphatase 82, Total Protein 6.8, Albumin 3.7 05/20/22 05:43: Glucometer 112H 05/20/22 11:38: Glucometer 107 05/20/22 15:46: Glucometer 91 Laboratory Tests 05/19/22 16:00 05/19/22 16:45 05/20/22 05:29 A/P: Assessment: Non-healing wound with osteomylitis right great toe - reports arterial u/s last week at wound care in [place], [place] which is reported as normal - management of wound per Dr. Berger and Dr. Campo - MRI 05-18-22: Findings consistent with osteomyelitis involving the fourth proximal middle phalanges as discussed above. Dorsal soft tissue ulcer at the level of the fourth proximal interphalangeal joint without identified focal fluid collection or abscess on noncontrast imaging assessment. Abnormal signal in the dorsal soft tissues at the level of the first interphalangeal joint with adjacent marrow signal abnormalities of the first digit proximal and distal phalanges concerning for early osteomyelitis. Correlation for physical exam in this region is recommended. Mild generalized fatty muscle atrophy which may reflect polyneuropathy. 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 Almendarez of [facility] - maintained on ARB, Coreg, Aldactone - echo on 05/20/22: LVEF 60-65%, mod conc LVH, mild to mod enlargement of both atria DM - diabetic neuropathy of LE HLD HTN Plan: Non-healing wound of right great toe with osteomylitis - management per Dr. Berger/Dr. Campo H/O viral CM per pt report - continue home medications of ARB, BB, diuretic and ASA Monitor lab - replace electrolytes as indicated REMI KEMP MD FACP FAC CCDS May 20, 2022 18:08
[2022-05-20] MEDS ORDERED: ROSUVASTATIN 20 MG (CRESTOR) TABLET PO SCH (21:00)
[2022-05-21] MEDS: HYDROcodone/APAP 7.5 MG/325 MG (LORTAB, LORCET PLUS) TABLET PO PRN ×4 (00:51→13:32)
--- NOTE | 2022-05-21 00:53 | OPERATIVE REPORT ---
DATE OF SERVICE: 05/20/2022 ATTENDING PRIMARY CARE PHYSICIAN: Dr. Lalit Farr, [place], [place]. ADMITTING PHYSICIAN: Dr. Campo. PREOPERATIVE DIAGNOSIS: Osteomyelitis, right fourth toe. POSTOPERATIVE DIAGNOSES: Osteomyelitis, right fourth toe. PROCEDURE: Amputation of right fourth toe with primary closure in an intermediate manner approximately 2 cm. Ankle nerve block. SURGEON: Chichi Berger MD. VICE PRESIDENT OF RECRUITING: Kushal Madden APRN. ANESTHESIA: MAC with nerve block. ESTIMATED BLOOD LOSS: Minimal. FINDINGS: Ulcer at the dorsal aspect of the right fourth toe. DISPOSITION: The patient tolerated the procedure well. INDICATIONS: The patient is a 61-year-old male who has had issues with a nonhealing wound of the right fourth toe, for his occupation does nicole. He states that with his work and his type of shoes that he has to wear that there is some trauma to his feet. The patient is also diabetic. The wound was treated with local wound care as well as antibiotics; however, he eventually underwent an MRI, which did show osteomyelitis of the first and fourth toe. The pathophysiology of osteomyelitis was explained to the patient as well as the high recurrence rate and he was okay with amputation of the fourth toe, however, would like to proceed with medical management with the first toe. DESCRIPTION OF PROCEDURE: The patient was brought to the operating room, laid supine on the table. After adequate IV pain and sedative medications and monitored anesthesia care, an ankle nerve block was performed. At the level near the posterior tibial artery, this area was anesthetized using 1% lidocaine with epinephrine. At the distal tibiofibular groove at the takeoff of the dorsalis pedis 1% lidocaine with epinephrine was used to anesthetize dorsal nerve. The superior and inferior flaps were then marked off with a marking pen. This area was then anesthetized using 1% lidocaine with epinephrine and skin incisions were made using a #15 blade. The flaps were then created using electrocautery. We then proceeded with dissecting the subcutaneous tissue as well as the ligamentous and tendinous attachments using electrocautery with visualization of good hemostasis. At the phalangeal tarsal joints of the amputation was done with visualization of good hemostasis. The flaps were then reapproximated using interrupted 2-0 Prolene sutures. The wound was then cleaned and covered with gauze followed by Kerlix wrap, followed by Coban, followed by a walking shoe. He will likely need to remain on antibiotic therapy for the osteomyelitis of his right great toe and we will have him follow up in office in approximately 2 weeks to reevaluate the toe and potential removal of the suture. Job ID: [id number] DocumentID: [id number] Dictated Date: 05/20/2022 14:36:34 Mri Specialist Date: 05/21/2022 00:53:26 Dictated By: CHICHI BERGER MD MTDD
[2022-05-21] MEDS: NS IV 1000 ML 1,000 ML IV SCH (02:57)
[2022-05-21] MEDS: CEFEPIME INJECTION 1,000 MG in NS (IVPB) 50 ML IV SCH ×2 (02:57→09:16)
[2022-05-21 03:36] VITALS: BP 125/68
[2022-05-21 05:45] LABS: BASOPHILS # (AUTO) 0.1 10^3/uL (0.0-0.1); BASOPHILS % (AUTO) 1 % (0-10); EOSINOPHILS # (AUTO) 0.4 10^3/uL (0.0-0.3); EOSINOPHILS % (AUTO) 4 % (0-10); HEMATOCRIT 39 % (40-54); HEMOGLOBIN 12.9 g/dL (13.3-17.7); LYMPHOCYTES # (AUTO) 1.9 10^3/uL (1.0-4.0); LYMPHOCYTES % (AUTO) 20 % (12-44); MEAN CORPUSCULAR HEMOGLOBIN 32 pg (25-34); MEAN CORPUSCULAR HGB CONC 34 g/dL (32-36); MEAN CORPUSCULAR VOLUME 95 fL (80-99); MEAN PLATELET VOLUME 9.3 fL (9.0-12.2); MONOCYTES # (AUTO) 0.7 10^3/uL (0.0-1.0); MONOCYTES % (AUTO) 7 % (0-12); NEUTROPHILS # (AUTO) 6.6 10^3/uL (1.8-7.8); NEUTROPHILS % (AUTO) 68 % (42-75); PLATELET COUNT 197 10^3/uL (130-400); WHITE BLOOD COUNT 9.7 10^3/uL (4.3-11.0)
[2022-05-21] MEDS: MULTIVIT W/MINERALS TAB (THERAGRAN M) PO SCH (05:54)
[2022-05-21] MEDS: inSUlin ASPART (NovoLOG) 1 UNIT/0.01 ML (CHARGE PER UNIT) SC SCH ×2 (05:56→11:39)
[2022-05-21 05:57] LABS: ALBUMIN 3.7 GM/DL (3.2-4.5); POTASSIUM 4.5 MMOL/L (3.6-5.0)
[2022-05-21 05:59] LABS: CALCIUM 9.2 MG/DL (8.5-10.1)
[2022-05-21 06:00] LABS: TOTAL PROTEIN 6.8 GM/DL (6.4-8.2)
[2022-05-21 06:02] LABS: BILIRUBIN,TOTAL 0.6 MG/DL (0.1-1.0)
[2022-05-21 06:03] LABS: CREATININE SERUM 1.08 MG/DL (0.60-1.30)
[2022-05-21 07:40] VITALS: BP 106/59
[2022-05-21] MEDS: LOSARTAN 100 MG (COZAAR) TABLET PO SCH (09:15)
[2022-05-21] MEDS: EMPAGLIFLOZIN 10 MG TABLET (JARDIANCE) PO SCH (09:15)
[2022-05-21] MEDS: amLODIPine 10 MG (NORVASC) TAB PO SCH (09:15)
[2022-05-21] MEDS: SENNOSIDES 8.6 MG (SENOKOT) TAB PO SCH (09:15)
[2022-05-21] MEDS: SPIRONOLACTONE 25 MG (ALDACTONE) TAB PO SCH (09:15)
[2022-05-21] MEDS: DOCUSATE SODIUM 100 MG (COLACE) CAP PO SCH (09:15)
[2022-05-21] MEDS ORDERED: TROUGH ORDER-PHARMACY XX NR (11:00)
[2022-05-21] MEDS ORDERED: HYDR-34 PO (11:05)
[2022-05-21] MEDS ORDERED: LEVO750T39 PO (11:05)
--- NOTE | 2022-05-21 11:06 | Discharge Summary ---
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 An MRI done 05/18 was consistent with osteomyelitis of the fourth toe. He was started on Vancomycin and sugery was consulted. He underwent a right fourth toe amputation with no complications. He tolerated this procedure well and was provided adequate pain control after the procedure. Throughout his hospital stay his sugars were well controlled on sliding scale insulin and empagliflozin. He was also seen by cardiology due to a history of cardiomyopathy. An echo was performed which revealed EF of 60-65% and mildly dilated right and left atrium. He is being discharged home on Levofloxacin 750mg daily in stable condition with instructions to follow up with his PCP in one week. ELEANOR LUNA Labs and Pending Lab Test: Laboratory Tests 05/20/22 11:38: Glucometer 107 05/20/22 15:46: Glucometer 91 05/20/22 20:38: Glucometer 128H 05/21/22 05:22: White Blood Count 9.7, Red Blood Count 4.06L, Hemoglobin 12.9L, Hematocrit 39L, Mean Corpuscular Volume 95, Mean Corpuscular Hemoglobin 32, Mean Corpuscular Hemoglobin Concent 34, Red Cell Distribution Width 12.8, Platelet Count 197, Mean Platelet Volume 9.3, Immature Granulocyte % (Auto) 0, Neutrophils (%) (Auto) 68, Lymphocytes (%) (Auto) 20, Monocytes (%) (Auto) 7, Eosinophils (%) (Auto) 4, Basophils (%) (Auto) 1, Neutrophils # (Auto) 6.6, Lymphocytes # (Auto) 1.9, Monocytes # (Auto) 0.7, Eosinophils # (Auto) 0.4H, Basophils # (Auto) 0.1, Immature Granulocyte # (Auto) 0.0, Sodium Level 141, Potassium Level 4.5, Chloride Level 107, Carbon Dioxide Level 23, Anion Gap 11, Blood Urea Nitrogen 20H, Creatinine 1.08, Estimat Glomerular Filtration Rate 77, BUN/Creatinine Ratio 19, Glucose Level 103, Calcium Level 9.2, Corrected Calcium 9.4, Total Bilirubin 0.6, Aspartate Amino Transf (AST/SGOT) 23, Alanine Aminotransferase ( ALT/SGPT) 26, Alkaline Phosphatase 79, Total Protein 6.8, Albumin 3.7 05/21/22 05:37: Glucometer 102 05/21/22 10:07: Glucometer 155H Microbiology 05/19/22 MRSA Screen - Final, Complete MRSA not isolated Home Meds Active HYDROcodone/APAP 7.5/325 TAB (Acetaminophen/Hydrocodone Bitart) 1 Ea Tablet 1 Ea PO Q4H PRN Levofloxacin 750 Mg Tablet 750 Mg PO DAILY Reported Spironolactone 25 Mg Tablet 25 Mg PO DAILY Rosuvastatin Calcium 20 Mg Tablet 20 Mg PO HS Metformin HCl 500 Mg Tablet 500 Mg PO BID Losartan Potassium 100 Mg Tablet 100 Mg PO DAILY Invokana (Canagliflozin) 100 Mg Tablet 100 Mg PO DAILY Centrum Silver Men Tablet (Multivit-Min/FA/Lycopen/Lutein) 300 Mcg-600 Mcg-300 Mcg Tablet 1 Each PO DAILY Carvedilol 25 Mg Tablet 25 Mg PO BID Aspirin 325 Mg Tablet 325 Mg PO BID Amlodipine Besylate 10 Mg Tablet 10 Mg PO DAILY Assessment/Pt Instructions PCP 1 week Discharge Planning: <30 minutes discharge planning Discharge Physical Examination Vital Signs Vital Signs Date Time Temp Pulse Resp B/P (MAP) Pulse Ox O2 Delivery O2 Flow Rate FiO2 05/21/22 08:07 98 Room Air 05/21/22 07:40 36.3 70 18 106/59 (75) 05/20/22 14:50 2.00 General Appearance: No Apparent Distress, WD/WN, Chronically ill Allergies: Coded Allergies: Penicillins (Verified Allergy, Unknown, 05/19/22) Discharge Summary Date of Admission May 19, 2022 at 14:12 Date of Discharge Discharge Date: May 21, 2022 Admission Diagnosis Assessment: Osteomyelitis in right 4th toe DM HTN HLP Plan: Amputation IV abx Discharge Diagnosis amputation (1) Osteomyelitis of toe of right foot Clinical Quality Measures DVT/VTE Risk/Contraindication: Contraindications-Mechi: Other *list below* Other: osteomyelitis PARDEEP MARSHALL DO May 21, 2022 11:06
[2022-05-21 11:09] VITALS: BP 121/61
--- NOTE | 2022-05-21 11:30 | Progress Note ---
ELEANOR LUNA 05/21/22 1130: Progress Note Brief Hospital Course: El Rodriguez is a 61 yo M who presented as a direct admit from wound care in [place], [place] where he was being treated for a right fourth toe lesion. An MRI done 05/18 was consistent with osteomyelitis of the fourth toe. He was started on Vancomycin and sugery was consulted. He underwent a right fourth toe amputation with no complications. He tolerated this procedure well and was provided adequate pain control after the procedure. Throughout his hospital stay his sugars were well controlled on sliding scale insulin and empagliflozin. He was also seen by cardiology due to a history of cardiomyopathy. An echo was performed which revealed EF of 60-65% and mildly dilated right and left atrium. He is being discharged home on Levofloxacin 750mg daily in stable condition with instructions to follow up with his PCP in one week. BRISA MARSHALL DO 05/21/22 2203: Supervisory-Addendum Brief Verification & Attestation Participated in pt care: history, MDM, physical Personally performed: exam, history, MDM, supervision of care Care discussed with: Medical Student Procedures: n/a Results interpretation: Verified all documentation Verification and Attestation of Medical Student E/M Service A medical student performed and documented this service in my presence. I reviewed and verified all information documented by the medical student and made modifications to such information, when appropriate. I personally performed the physical exam and medical decision making. Brisa Marshall, May 21, 2022,22:03 ELEANOR LUNA May 21, 2022 11:30 BRISA MARSHALL DO May 21, 2022 22:03
[2022-05-21 13:49] VITALS: BP 121/61
== END 2022-05-21 13:51 | disposition home or self-care (01) | DRG 617 ==
LOC: 4TH 14:12
PROVIDERS: ADMIT Internal Medicine; ATTEND Internal Medicine
PROC: 0Y6V0Z3 Detachment at Right 4th Toe, Low, Open Approach (ICD-10-PCS; principal; 2022-05-20 13:55)
DX: E11.69 Type 2 diabetes mellitus with other specified complication (principal); I42.9 Cardiomyopathy, unspecified; M86.8X7 Other osteomyelitis, ankle and foot; I10 Essential (primary) hypertension; B96.5 Pseudomonas (aeruginosa) (mallei) (pseudomallei) as the cause of diseases classified elsewhere; E78.00 Pure hypercholesterolemia, unspecified; K21.9 Gastro-esophageal reflux disease without esophagitis; E11.40 Type 2 diabetes mellitus with diabetic neuropathy, unspecified; Z79.82 Long term (current) use of aspirin; Z79.899 Other long term (current) drug therapy
CPT/HCPCS: 36415; 73706; 80053; 82947; 85025; 87081; 93306; 94760